=== PATIENT | female | born 1985 | race Caucasian/White ===

== ENCOUNTER 2024-04-23 08:10 | Emergency (ER) | payer OTHER, MEDICAID, SELFPAY ==
[2024-04-23 08:27] VITALS: BP 147/75; PULSE 93; RESP 16; TEMP 36.3; O2SAT 96; BMI 40.2
[2024-04-23 09:49] VITALS: BP 90/48; PULSE 86; RESP 14; TEMP 36.3; O2SAT 96
--- NOTE | 2024-04-23 09:53 | ED_ITS ---
HPI - Back Pain/Injury General Chief Complaint: Back Pain/Injury Stated Complaint: Back pain Time Seen by Provider: 04/23/24 09:22 Source: patient Mode of arrival: ambulatory Limitations: no limitations History of Present Illness ED Provider: Lula Boswell PA-C HPI Narrative: History of morbid obesity, chronic back pain who presents to the ER for evaluation of worsening right-sided lower back pain for the last 2 or 3 days. 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 It is located in the right lower back, radiates into the right hip and right groin. She denies any urinary symptoms, abdominal pain, nausea, vomiting, constipation, diarrhea. No numbness or tingling. No radiation down her buttock or leg. No weakness in her leg. No saddle paresthesias. She reports back pain for the last 1 year that comes and goes, usually responds well to ibuprofen but this pain has not improved much with NSAIDs. MD elicited complaint: back pain Pertinent past history: prior back pain Onset (ago): day(s) (3) Timing: constant Severity: severe Pain scale (0-10): 8 Quality: stabbing and spasming Location: right lower back Exacerbating factors: movement Relieving factors: none Context: unknown Associated symptoms: denies other symptoms Treatments prior to arrival: NSAIDS Work related injury: No Related Data Previous Rx's ?Medication ?Instructions ?Recorded cyclobenzaprine 10 mg tablet 10 mg PO TID PRN muscle spasm #10 04/23/24 tabs lidocaine 5 % topical patch 1 patch topical DAILY #15 ea 04/23/24 naproxen 500 mg tablet 500 mg PO BID PRN pain #20 tabs 04/23/24 Allergies Allergy/AdvReac Type Severity Reaction Status Date / Time No Known Allergies Allergy Verified 04/23/24 08:28 Review of Systems Review of Systems: Yes all other systems are reviewed and are negative [facility] Social History Social History Smoked in Last 30 Days: No Use of substances other than those prescribed or required for medical reasons: No Advance Directives: No Advance Directives Information Provided: Yes Patient : No Physical Exam Vital Signs: Vital Signs: Last Vital Signs Temp 97.4 F 04/23/24 09:49 Pulse 86 04/23/24 09:49 Resp 14 04/23/24 09:49 BP 90/48 L 04/23/24 09:49 Pulse Ox 96 04/23/24 09:49 O2 Del Method Room Air 04/23/24 09:49 BMI result Body Mass Index 40.2 Appearance: Alert. Oriented X3. No acute distress. Head: normocephalic, atraumatic. Eyes: Pupils equal, round and reactive to light. ENT: Pharynx normal. No tonsillar swelling or exudate. Neck: Normal inspection. Neck supple. CVS: Normal heart rate and rhythm. Pulses normal. Respiratory: No respiratory distress. Breath sounds normal. Abdomen: Obese, Soft and nontender. +BS x4 Back: normal inspection, soft tissue tenderness of the Skin: Skin warm and dry. Normal skin color. Normal skin turgor. No rashes. Extremities: No lower extremity edema. No joint swelling. Neuro/psych: Oriented X 3. No motor deficit. No sensory deficit. CN II-XII intact. Normal speech and cognition. Steady gait Medications Administered Discontinued Medications Generic Name Dose Route Start Last Admin Trade Name Freq PRN Reason Stop Dose Admin Acetaminophen 975 mg 04/23/24 09:42 04/23/24 10:08 Acetaminophen 325 Mg Tablet PO 04/23/24 09:43 975 mg ONCE ONE Administration Cyclobenzaprine HCl 10 mg 04/23/24 09:42 04/23/24 10:09 Cyclobenzaprine Hcl 10 Mg Tablet PO 04/23/24 09:43 10 mg ONCE ONE Administration Ketorolac Tromethamine 30 mg 04/23/24 09:42 04/23/24 10:09 Ketorolac Tromethamine 30 Mg/Ml Vial IM 04/23/24 09:43 30 mg ONCE ONE Administration Lidocaine 1 patch 04/23/24 09:42 04/23/24 10:10 Lidocaine 4 % Patch Adh..Patch TRANSDERMA 04/23/24 09:43 1 patch ONCE ONE Administration Protocol Medical Decision Making Medical Decision Making MDM Narrative: 39-year-old female presenting to the ER for evaluation of acute on chronic lower back pain, on the right side radiating to the right hip and groin. No red flag symptoms of low back pain. No trauma or injury. Most likely muscle strain and spasm with soft tissue tenderness on examination. Urinalysis is negative for infection. Doubt kidney stone. Will treat with muscle relaxer, NSAID, Lidoderm, lower back exercises and stretches. Advised to follow-up with her primary care doctor. Other symptomatic measures discussed including ice, heat. Stable for DC home. Differential Diagnosis Differential Diagnoses: The differential diagnosis associated with the presentation includes Inflammatory disorders, malignancy, trauma, osteoporosis, nerve root compression, radiculopathy, plexopathy, degenerative disc disease, disc herniation, spinal stenosis, sacroiliac joint dysfunction, facet joint injury, and less likely infection?like abscess or diskitis Lab Data MDM Lab Attestation statement: I reviewed the patient's lab results. Labs: Lab Results 04/23/24 Range/Units 10:29 Urine Color Yellow Urine Appearance Cloudy Urine pH 6.5 (5.0-9.0) Ur Specific [place] 1.020 (1.005-1.025) Urine Protein Negative (Neg-Trace) mg/dL Urine Glucose (UA) Negative (Negative) mg/dL Urine Ketones Negative (Negative) mg/dL Urine Blood Negative (Negative) Urine Nitrite Negative (Negative) Ur Leukocyte Esterase Trace H (Negative) Urine RBC 3-5 H (0-2) /HPF Urine WBC 6-10 H (0-5) /HPF Ur Squamous Epith Cells 11-20 (0-2) /HPF Urine Bacteria 3+ (None Seen) Hyaline Casts 3-5 (0-2) /LPF Tests considered The following testing was considered but not selected: Considered x-ray lumbar spine however there was no trauma Prescription Management I considered prescription management with: Pain Medication Chronic Conditions Patient?s care impacted by: Other (Obesity) Critical Care Time Critical Care Time Critical Care Time: No Discharge Plan Discharge Clinical Impression: Strain of lumbar region Qualifiers: Encounter type: initial encounter Qualified Code(s): S39.012A - Strain of muscle, fascia and tendon of lower back, initial encounter Patient Disposition: Home, Self-Care Instructions: Low Back Strain (ED), Lower Back Exercises (ED) Additional Instructions: Your pain is most likely due to muscle strain and spasm. Limit bending, lifting or twisting. Use ice several times per day for 20 minutes at a time for the next 48 hours and then change to heat. Take medications as prescribed to help with pain and discomfort. Follow up with your Primary Care Doctor this week. If your pain worsens, if you develop new numbness, tingling, weakness, loss of function or incontinence call 911 or come back to the ER right away for evaluation. Prescriptions: New lidocaine 5 % adhesive patch,medicated 1 patch topical DAILY Qty: 15 0RF Rx Instructions: leave on most painful area for up to 12 hrs cyclobenzaprine 10 mg tablet 10 mg PO TID PRN (Reason: muscle spasm) Qty: 10 0RF naproxen 500 mg tablet 500 mg PO BID PRN (Reason: pain) Qty: 20 0RF Referrals: Shauna Beard PA [Primary Care Provider] - Stand Alone Forms: Work/School Release Print Language: Irish
--- NOTE | 2024-04-23 09:53 | PC.NURSE ---
Pt comes to ED today with c/o low back pain/spasms x2 days with no relief. Pain/spasms are intermittent and typically resolve with OTC Motrin. Pt reports onset was about 2 days ago but have not resolved. Pain is 8/10 and reports supine position is the best. A&Ox3 VSS, afebrile. Skin is warm and dry Breaths and speech are even and unlabored. Facial symmetry present. Awaiting orders.
[2024-04-23] MEDS: Acetaminophen 325 MG TABLET 975 MG PO (10:08)
[2024-04-23] MEDS: Cyclobenzaprine HCl 10 MG TABLET PO (10:09)
[2024-04-23] MEDS: Ketorolac Tromethamine 30 MG/ML VIAL IM (10:09)
[2024-04-23] MEDS: Lidocaine 4 % Patch ADH..PATCH 1 PATCH TRANSDERMA (10:10)
[2024-04-23 10:42] LABS: Appearance Urine Cloudy; Color Urine Yellow; Glucose Urine UA Negative (Negative); Leukocyte Esterase Urine Trace (Negative); Nitrite Urine Negative (Negative); PH 6.5 (5.0-9.0); UMIC TRIGGER UACC YES; Urine Blood Negative (Negative); Urine Ketones Negative (Negative); Urine Protein Negative (Neg-Trace)
[2024-04-23 10:54] LABS: Bacteria Urine 3+ (None Seen); UACC Culture Trigger YES
[2024-04-23 11:27] VITALS: BP 120/78; PULSE 58; RESP 14; TEMP 36.8; O2SAT 100
== END 2024-04-23 11:27 | disposition home or self-care (01) ==
PROVIDERS: Physician Assistant; Emergency Provider Student in an Organized Health Care Education/Training Program; PCP Physician Assistant
DX: S39.012A Strain of muscle, fascia and tendon of lower back, initial encounter (principal); X50.3XXA Overexertion from repetitive movements, initial encounter; Y93.89 Activity, other specified; Y92.89 Other specified places as the place of occurrence of the external cause; Y99.0 Civilian activity done for income or pay
CPT/HCPCS: 81001; 87086; 96372; 99284; J1885